=== PATIENT | male | born 1970 | race Caucasian/White ===

== ENCOUNTER 2019-06-04 02:07 | Emergency (ER) | payer OTHER, SELFPAY ==
[2019-06-04 02:08] VITALS: BP 132/88; PULSE 66; RESP 15; TEMP 36.7; O2SAT 97; BMI 23.2
--- NOTE | 2019-06-04 02:40 | ED.DCSUM_ITS ---
- ER Visit Summary Date of Service: 06/04/19 Chief Complaint: Back and leg pain History of Present Illness: The patient is a [address] Chávez. He reports approximate month ago playing basketball he injured his SI joint. States that he has been stretching, but the pain is worsened over the past 5 days. States that over the past 6 hours pain is been excruciating. Is a sharp, stabbing pain is 10 on 10 in severity. Is worsened by movement or walking. Is relieved by remaining still and ibuprofen. States it radiates down the back of his right leg to the level of his calf. He denies any numbness or weakness. No problems with his bowels or his bladder. No groin numbness. Patient denies any red flags. His review of systems is negative. Physical Examination: Vitals: Stable. Afebrile. General: A&O x 3. NAD. Cardiovascular exam: Regular rate and rhythm, no murmur, rub or gallop. Respiratory exam: Clear to auscultation bilaterally. No wheezes or stridor. Abdominal exam: Soft, nontender, nondistended, normal bowel sounds. No peritoneal signs. Back: Diffuse moderate tenderness to palpation over the lumbar spine and the paraspinous musculature in the lumbar region. No point tenderness. Negative straight leg bilaterally. 5/5 DF, PF, EHL bilaterally. Normal sensation to light touch throughout. Extremity: No clubbing, cyanosis, or edema. Emergency Department Course and Treatment: Patient was treated with morphine, Toradol, and Valium. He is resting more comfortably. Treatment Plan: Patient was instructed on symptomatic care. He will be discharged with naproxen, Percocet, and Valium. Instructed to follow-up with Dr. Chávez in 1 week if not improving. Return to the emergency department for any worsening symptoms. Disposition: To home in improved and stable condition. Impression: 1. Acute sciatica on right. This note was generated with [employer] dictation software. It may contain incorrect words, spelling, and punctuation that were not noted in review of the chart prior to signing ED Disposition - Plan for ED Patient: Instructions: Understanding Sciatica Prescriptions: Naproxen [Naprosyn] 500 mg PO BID #14 tablet Oxycodone HCl/Acetaminophen [Percocet 5/325] 1 tablet PO Q6H PRN PRN 3 Days #12 tablet PRN Reason: Pain Diazepam [Valium] 5 mg PO Q8 PRN #20 tablet PRN Reason: Muscle Spasm Referrals: Shakeel Olson MD [Primary Care Provider] - 1 Week if not improving
[2019-06-04] MEDS: Ketorolac 60 MG/2 ML Vial IM (02:48)
[2019-06-04] MEDS: morphine 8 MG/ML Syringe IM (02:49)
[2019-06-04] MEDS: diazePAM 5 MG Tablet PO (02:49)
[2019-06-04 03:20] VITALS: BP 128/60; PULSE 64; RESP 18; O2SAT 98
== END 2019-06-04 03:20 | disposition home or self-care (01) ==
LOC: ED 02:55
PROVIDERS: Emergency Provider Emergency Medicine; PCP Family Medicine
DX: M54.41 Lumbago with sciatica, right side (principal)
CPT/HCPCS: 96372; 99283

== ENCOUNTER 2019-06-05 10:04 | Emergency (ER) | payer OTHER, SELFPAY ==
[2019-06-04 02:08] VITALS: BMI 23.2
[2019-06-05 10:05] VITALS: BP 101/71; PULSE 75; RESP 18; TEMP 36.7; O2SAT 98; BMI 23.3
--- NOTE | 2019-06-05 10:29 | ED.DCSUM_ITS ---
History of Present Illness Chief Complaint: Back Informant: Patient Onset: Days Current Severity: Moderate Maximum Severity: Severe Narrative: Patient presents from PCP office secondary to back pain. He has had problems with his SI joint over the last month or so. Last Tuesday he states he was trying to help a friend push something out of the mud and felt something pull in his right lower back. He developed worse sciatica symptoms on . He states his been crawling around his house. He was seen in the ER early yesterday morning and diagnosed with sciatica. He was given Naprosyn, Percocet, and Valium. Patient states he had noted very minimal improvement in his symptoms. He was seen by his PCP this morning who gave him a steroid shot. Patient states on the way to the ER he started to notice some improvement in his symptoms. He has not had problems with bowel or bladder control. He is concerned about developing constipation from the pain medication. - Past Medical History (1) Sciatica Status: Acute Past Medical History - Allergies and Home Meds Allergies/Adverse Reactions: Allergies No Known Allergies Allergy (Verified 06/05/19 10:04) Primary Care Physician: Shakeel Olson MD [Primary Care Provider] - Prior records reviewed: Yes Lives: Spouse/ Significant Other Smoking Status: Never smoker Review of Systems General: Denies: Chills, Fever Eyes: Denies: Visual changes - bilaterally ENT: Denies: Bilateral ear pain Cardiovascular: Denies: Chest pain, Palpitations Respiratory: Denies: Dyspnea, Cough Gastrointestinal: Denies: Abdominal pain, Nausea, Vomiting, Diarrhea Musculoskeletal: Reports: Back pain, Extremity Pain Skin: Denies: Rash Neurological: Denies: Headache, Parasthesia Hematologic: Denies: Easy bruising Allergy: Denies: Uticaria Physical Exam Vital Signs/Narrative: Vital Signs Temp Pulse Resp BP Pulse Ox 06/05/19 10:05 98.1 F 75 18 101/71 98 Inital Vital Signs reviewed: Yes General: Well nourished, Well developed Head: Normocephalic ENT: Moist mucous membranes Neck: Supple Cardiovascular: Regular rate, Regular rhythm Respiratory: No distress, CTA bilaterally Abdomen: Soft, Nontender Back: - - No midline tenderness. Minimal tenderness over the right SI joint. Skin: Normal color Neurological: Alert, Oriented x3, - - Patient lying prone on the bed. Strong distal pulses noted. Good range of motion of both extremities. Psychological: Normal affect Diagnostic/Tx/Re-eval - Medical Decision Making Patient was given 1 mg of IM Dilaudid on arrival. On repeat evaluation patient has been able to ambulate to the restroom. We were able to get him rolled onto his back and sitting upright in the bed. He states his PCP had mentioned potentially switching to a different anti-inflammatory. I touched base with Dr. Olson. He said his plan was to give the patient 40 mg of prednisone for the next 5 days as well as starting him on gabapentin 300 mg 3 times daily. I will write him these prescriptions as well as stool softeners. He will follow-up with Dr Olson in the office. ED Disposition - Plan for ED Patient: Disposition: Home or Assisted Living Diagnosis: Sciatica Instructions: ED LUMBAR RADICULOPATHY Prescriptions: Docusate Sodium [Colace] 100 mg PO DAILY #20 cap Transmission Status: Pending to [facility] Prednisone [Deltasone] 40 mg PO DAILY #10 tab Transmission Status: Pending to [facility] Gabapentin [Neurontin] 300 mg PO TIDCM #60 cap Transmission Status: Pending to [facility] Referrals: Shakeel Olson MD [Primary Care Provider] - 1 Week
[2019-06-05] MEDS: HYDROmorphone 1 MG/ML Syringe IM (10:36)
== END 2019-06-05 12:45 | disposition home or self-care (01) ==
PROVIDERS: Emergency Provider Emergency Medicine; PCP Family Medicine
DX: M54.41 Lumbago with sciatica, right side (principal)
CPT/HCPCS: 96372; 99282

== ENCOUNTER → 2019-06-08 08:52 | Outpatient (CLI) | payer OTHER, SELFPAY ==
[2019-06-05 10:05] VITALS: BMI 23.3
--- NOTE | 2019-06-08 09:02 | RAD_ITS ---
STUDY: X-RAY - LUMBAR SPINE REASON FOR EXAM: Male, 48 years old. Lumbago with sciatica -- numbness in toes, right side TECHNIQUE: 5 view(s) of the lumbar spine were obtained including oblique views. COMPARISON: None FINDINGS: Normal lumbar lordosis. There is no substantial scoliosis. There is a normal alignment of the vertebrae. There is endplate spondylosis of the L2-L3 and L3-L4 levels. Normal disc space heights. The soft tissue structures are unremarkable. RAD/L/S Spine Min 4 Views IMPRESSION: Degenerative changes of the spine, as detailed above. Electronically Signed: Alejandro Saenz, at 9:47 EDT , Service support ,
== END ==
PROVIDERS: PCP Family Medicine; Referring Provider Family Medicine; Visit Provider Family Medicine
DX: M54.40 Lumbago with sciatica, unspecified side (principal)
CPT/HCPCS: 72110

== ENCOUNTER 2020-01-26 08:44 | Observation (INO) | payer OTHER, SELFPAY ==
[2020-01-26 08:45] VITALS: BP 127/103; PULSE 101; RESP 19; TEMP 36.6; O2SAT 99; BMI 22.7
--- NOTE | 2020-01-26 08:50 | ED.RN ---
pt states that i am moist down there, and i can smell it. pt had a recent vasectomy.
--- NOTE | 2020-01-26 09:05 | ED.VISSUMM ---
- ER Visit Summary Date of Service: 01/26/20 Chief Complaint: Scrotal abscess History of Present Illness: The patient is a 49 M who presents with a scrotal abscess. Signed up to see the patient however prior to evaluating the patient, I was called to another room to see an unresponsive patient. When I came out of the patient's room, Dr. Cool was here to see the patient. He stated he will just see the patient primarily as a private patient. Patient was not seen or evaluated by myself. Physical Examination: [] Test Results: [] Emergency Department Course and Treatment: Treatment Plan: [] Disposition: Impression: [] This note was generated with [employer] dictation software. It may contain incorrect words, spelling, and punctuation that were not noted in review of the chart prior to signing ED Disposition - Plan for ED Patient: Disposition: Acute Care Hospital [facility] Referrals: Shakeel Olson MD [Primary Care Provider] -
--- NOTE | 2020-01-26 09:18 | PCM.HP.BLA ---
History and Physical Date of Admission: 01/26/20 49-year-old male who underwent a vasectomy in the office about 10 days ago was did initially really well and then he came back to the office few days later with some mild swelling we put him on antibiotics anti-inflammatories the swelling continued and then call me today says the swelling is even worse now he is seeing some pus coming from the incision site so came to the emergency room and did an incision and drainage of the vasectomy sites in both the left and right side he had pus and had developed a small abscess on both the left and right side. On examination the scrotum is swollen very tender the right side is much more swollen made an incision and drainage of the right side drained out issa pus sent out the pus for culture and packed it with Nu Gauze on the left side made a small incision packed with Nu Gauze. 49-year-old male who unfortunately developed a scrotal abscess after vasectomy he will be admitted for IV antibiotics and the nurses could do dressing changes.
[2020-01-26] MEDS: Lidocaine 1% (20 ml mdv) 20 ML Vial 5 ML INFILT (09:22)
[2020-01-26 10:51] VITALS: BMI 22.2
[2020-01-26 10:52] VITALS: BP 114/73; PULSE 60; RESP 18; TEMP 36.8; O2SAT 100
[2020-01-26] MEDS: oxyCODONE 5 MG Tablet 10 MG PO ×3 (12:05→20:09)
[2020-01-26] MEDS: Ceftriaxone 1 GM/50 ML BAG IV ×2 (12:07→22:38)
[2020-01-26 14:50] VITALS: BP 108/66; PULSE 63; RESP 18; TEMP 36.7; O2SAT 100
[2020-01-26] MEDS: Naproxen 500 MG Tablet PO (18:36)
[2020-01-26 20:03] VITALS: BP 106/55; PULSE 65; RESP 18; TEMP 36.8; O2SAT 98
[2020-01-27] MEDS: oxyCODONE 5 MG Tablet 10 MG PO ×5 (00:14→16:51)
[2020-01-27 02:10] VITALS: BP 99/64; PULSE 58; RESP 18; TEMP 36.6; O2SAT 99
[2020-01-27] MEDS: Acetaminophen 325 MG Tablet 650 MG PO (02:15)
[2020-01-27 08:15] VITALS: BP 105/77; PULSE 64; RESP 16; TEMP 36.6; O2SAT 100
[2020-01-27] MEDS: Naproxen 500 MG Tablet PO ×2 (08:51→16:53)
[2020-01-27] MEDS: Ceftriaxone 1 GM/50 ML BAG IV ×2 (08:53→22:13)
--- NOTE | 2020-01-27 09:38 | PN_ITS ---
Subjective: Dressing change today for scrotal abscess bilaterally - Physical Exam Vitals/I&O's: Vital Signs Temp Pulse Resp BP Pulse Ox 97.8 F 64 16 105/77 100 01/27/20 08:15 01/27/20 08:15 01/27/20 08:15 01/27/20 08:15 01/27/20 08:15 Oxygen Delivery Method Room Air Weight: 68.266 kg Body Mass Index (BMI) 22.2 Intake and Output for Last 24 Hours 01/25/20 01/26/20 01/27/20 23:59 23:59 23:59 Intake Total 1640 / 1640 617.5 / 617.5 Balance 1640 / 1640 617.5 / 617.5 General: Alert, Oriented x3, Cooperative HEENT: Atraumatic, PERRLA, EOMI, Normocephalic Neck: Supple, No JVD, Negative Carotid Bruits Lungs: Clear to auscultation, Normal air movement Cardiovascular: Regular rate, No murmurs Abdomen: Bowel Sounds Present, Soft, Non Tender Extremities: No edema, Capillary Refill Less than 3 Seconds Skin: No rashes, No breakdown Musculoskeletal: No Tenderness to Palpation of Joints or Extremities Neurological: Cranial nerves II-XII grossly intact Psych/Mental Status: Normal Affect, Appropriate Current Medications Acetaminophen (Acetaminophen 325 Mg Tablet) 650 mg PO Q6H PRN PRN PRN Reason: Pain Score 1-10/Temp > 100.7 F Last Admin: 01/27/20 02:15 Dose: 650 mg Documented by: Ceftriaxone Sodium (Rocephin) 1 gm in 50 mls @ 100 mls/hr IV Q12 [facility] Last Admin: 01/27/20 08:53 Dose: 100 mls/hr Documented by: Sodium Chloride () 250 mls @ 15 mls/hr IV .[id number] PRN PRN Reason: Saline Flush Last Infusion: 01/27/20 08:54 Dose: 0 mls/hr Documented by: Sodium Chloride () 250 mls @ 15 mls/hr IV .[id number] PRN PRN Reason: Additional IVPB Infusion Naproxen (Naproxen 500 Mg Tablet) 500 mg PO BIDCM [facility] Last Admin: 01/27/20 08:51 Dose: 500 mg Documented by: Oxycodone HCl (Oxycodone 5 Mg Tablet) 10 mg PO Q4H PRN PRN PRN Reason: Pain Score 4-10 Last Admin: 01/27/20 08:49 Dose: 5 mg Documented by: Sodium Chloride (0.9% Saline Lock 10 Ml Syringe) 10 - 40 ml IV UD PRN PRN Reason: SALINE FLUSH Medical Necessity - Tobacco Use Smoking Status: Never smoker Assessment/Plan All Active Problems Sciatica (Acute) Still some mild drainage on the left side with some purulent material right side look looking better nurses will do dressing change tonight other dressing change tomorrow morning plan to discharge him home tomorrow with antibiotics await cultures.
[2020-01-27 16:48] VITALS: BP 108/67; PULSE 67; RESP 16; TEMP 36.7; O2SAT 99
[2020-01-27 20:21] VITALS: BP 112/58; PULSE 56; RESP 16; TEMP 36.8; O2SAT 96
[2020-01-27] MEDS: Morphine 2 MG/ML Syringe IV (21:10)
[2020-01-27] MEDS: 0.9% Saline Lock 10 ML Syringe IV (21:13)
[2020-01-28 02:37] VITALS: BP 101/63; PULSE 59; RESP 16; TEMP 36.6; O2SAT 98
[2020-01-28] MEDS: oxyCODONE 5 MG Tablet 10 MG PO (05:49)
--- NOTE | 2020-01-28 07:37 | DCINST_ITS ---
Discharge Diet: No Restrictions, Light diet - advance as tolerated Call your doctor if your incision/area has: Sudden Increased Bleeding Call your doctor if you observe: Fever of 101 or Higher Allergies/Adverse Reactions: Allergies No Known Allergies Allergy (Verified 01/26/20 10:53) Medications to take at Discharge Diazepam [Valium] 5 mg PO Q8 PRN #20 tab 06/04/19 Naproxen [Naprosyn] 500 mg PO BID #14 tab 06/04/19 Docusate Sodium [Colace] 100 mg PO DAILY #20 cap 06/05/19 Gabapentin [Neurontin] 300 mg PO TIDCM #60 cap 06/05/19 Prednisone [Deltasone] 40 mg PO DAILY #10 tab 06/05/19 Smz/Tmp Ds [Bactrim Ds] 1 tab PO BID 01/26/20 Primary Care Physician: Shakeel Olson MD [Primary Care Provider] - Test Results: Test results from this visit will be discussed in further detail at your follow- up appointment, if applicable. Please Follow Up With: Jj Cool MD When: come to office tomorrow for dressing change
--- NOTE | 2020-01-28 07:39 | PCM.DC.SUM ---
Discharge Date and Diagnosis Date of Admission: 01/26/20 Date of Discharge: 01/28/20 Hospital Course and Treatment Summary of Care Provided: The patient is a 49 year old male admitted to the hospital with scrotal abscess. Underwent incision and drainage of abscess IV antibiotics stabilized and discharged home today. - Physical Exam Vitals/I&O's: Vital Signs Temp Pulse Resp BP Pulse Ox 98 F 59 L 16 101/63 98 01/28/20 02:37 01/28/20 02:37 01/28/20 02:37 01/28/20 02:37 01/28/20 02:37 Oxygen Delivery Method Room Air Weight: 68.266 kg Body Mass Index (BMI) 22.2 Intake and Output for Last 24 Hours 01/26/20 01/27/20 01/28/20 23:59 23:59 23:59 Intake Total 1640 / 1640 2194.0 / 2594.0 706 / 706 Balance 1640 / 1640 2194.0 / 2594.0 706 / 706 General: Alert, Oriented x3, Cooperative HEENT: Atraumatic, PERRLA, EOMI, Normocephalic Neck: Supple, No JVD, Negative Carotid Bruits Lungs: Clear to auscultation, Normal air movement Cardiovascular: Regular rate, No murmurs Abdomen: Bowel Sounds Present, Soft, Non Tender Extremities: No edema, Capillary Refill Less than 3 Seconds Skin: No rashes, No breakdown Musculoskeletal: No Tenderness to Palpation of Joints or Extremities Neurological: Cranial nerves II-XII grossly intact Psych/Mental Status: Normal Affect, Appropriate Current Medications Acetaminophen (Acetaminophen 325 Mg Tablet) 650 mg PO Q6H PRN PRN PRN Reason: Pain Score 1-10/Temp > 100.7 F Last Admin: 01/27/20 02:15 Dose: 650 mg Documented by: Ceftriaxone Sodium (Rocephin) 1 gm in 50 mls @ 100 mls/hr IV Q12 [facility] Last Infusion: 01/27/20 22:50 Dose: Infused Documented by: Sodium Chloride () 250 mls @ 15 mls/hr IV .[id number] PRN PRN Reason: Saline Flush Last Infusion: 01/28/20 02:00 Dose: Infused Documented by: Sodium Chloride () 250 mls @ 15 mls/hr IV .[id number] PRN PRN Reason: Additional IVPB Infusion Naproxen (Naproxen 500 Mg Tablet) 500 mg PO BIDCM [facility] Last Admin: 01/27/20 16:53 Dose: 500 mg Documented by: Oxycodone HCl (Oxycodone 5 Mg Tablet) 10 mg PO Q4H PRN PRN PRN Reason: Pain Score 4-10 Last Admin: 01/28/20 05:49 Dose: 5 mg Documented by: Sodium Chloride (0.9% Saline Lock 10 Ml Syringe) 10 - 40 ml IV UD PRN PRN Reason: SALINE FLUSH Last Admin: 01/27/20 21:13 Dose: 10 ml Documented by: Discharge Diet: No Restrictions, Light diet - advance as tolerated Call your doctor if your incision/area has: Sudden Increased Bleeding Call your doctor if you observe: Fever of 101 or Higher Home Medications: Medications to take at Discharge Naproxen [Naprosyn] 500 mg PO BID #14 tab 06/04/19 Prednisone [Deltasone] 40 mg PO DAILY #10 tab 06/05/19 Smz/Tmp Ds [Bactrim Ds] 1 tab PO BID 01/26/20 Primary Care Physician: Shakeel Olson MD [Primary Care Provider] - Please Follow Up With: Jj Cool MD When: come to office tomorrow for dressing change Medical Necessity - Tobacco Use Smoking Status: Never smoker Meaningful Use Info Meaningful Use Diagnoses (Choose all that apply): None applicable
[2020-01-28] MEDS: Naproxen 500 MG Tablet PO (08:08)
[2020-01-28 09:15] VITALS: BP 117/63; PULSE 64; RESP 16; TEMP 36.4; O2SAT 98
[2020-01-28] MEDS: 0.9% Saline Lock 10 ML Syringe IV (09:15)
[2020-01-28] MEDS: Ceftriaxone 1 GM/50 ML BAG IV (09:15)
== END 2020-01-28 10:24 | disposition home or self-care (01) ==
LOC: ED 09:41 → MS3 10:48
PROVIDERS: Admitting Provider Urology; Emergency Provider Urology; PCP Family Medicine; Visit Provider Urology
DX: N49.2 Inflammatory disorders of scrotum (principal); Z79.1 Long term (current) use of non-steroidal anti-inflammatories (NSAID)
CPT/HCPCS: 96365; 96366; 96375; 99218; 99281; J7050; A4216; G0378

== ENCOUNTER 2020-12-26 21:01 | Emergency (ER) | payer OTHER, SELFPAY ==
[2020-12-26 21:02] VITALS: BP 120/73; PULSE 89; RESP 16; TEMP 36.7; O2SAT 96; BMI 22.7
--- NOTE | 2020-12-26 21:19 | RAD_ITS ---
STUDY: X-RAY - RIGHT ELBOW REASON FOR EXAM: Male, 50 years old. Other, pt has an infected elbow that is getting worse been getting treated for the same at drs office TECHNIQUE: 2 view(s) of the elbow. COMPARISON: None. FINDINGS: Normal visualized humerus, radius and ulna. Small displaced enthesophyte of the olecranon process is noted. Mild posterior soft tissue swelling is present. No demonstrated cortical erosion. No fracture is seen. Normal radiocapitellar and ulnotrochlear articulations. RAD/Elbow 2 Views IMPRESSION: 1. Mild posterior soft tissue swelling Electronically Signed: Ty Suárez MD at 22:13 EDT , Service support ,
--- NOTE | 2020-12-26 21:24 | EX.ED.DYSGE1 ---
HPI History of Present Illness Chief Complaint: Wound Informant: patient Narrative Narrative: Presents here for wound check right elbow that is worsening throughout the day. [id number]. Working yesterday with scrubbing of the right hand, denied leaning on his INR any injuries. States today there is slight swelling saw PCP office, reported concerns of a small abrasion of the elbow causing infection. He was started on Keflex and Bactrim. He is taking 1 dose of each. He states was told if symptoms worsen to go the ED. Since then the redness swelling has increased in the elbow. He states he feels warm. He is not a diabetic. No allergies. He feels discomfort when he over flex the elbow due to the swelling. Prior similar symptoms: No PFSH PFSH Home Medications amoxicillin-pot clavulanate [Augmentin] 1 tab PO BID #20 tab 12/26/20 [Rx Last Taken Unknown] doxycycline monohydrate 100 mg PO BID #20 cap 12/26/20 [Rx Last Taken Unknown] Allergy/AdvReac Type Severity Reaction Status Date / Time No Known Allergies Allergy Verified 12/26/20 21:04 Surgical History H/O vasectomy Social History Smoking Status: Never smoker ROS ROS ED Constitutional Constitutional ED: Denies chills, fever(s) or sweats Eyes Eyes: Denies change in vision ENT ENT ED: Denies dysphagia or sore throat Cardiovascular Cardiovascular: Denies chest pain, leg edema, palpitations or racing heartbeat Respiratory/Chest Respiratory/Chest: Denies cough, dyspnea or dyspnea on exertion Gastrointestinal Gastrointestinal: Denies abdominal pain, diarrhea, nausea or vomiting Genitourinary Genitourinary ED: Denies dysuria, hematuria or urinary frequency Musculoskeletal Musculoskeletal: Denies back pain, extremity pain or neck pain Integumentary Reports rash and other Details: Swelling right elbow with erythema. ; Denies wounds Neurologic Neurologic: Denies headache(s), paresthesias or weakness EXAM Physical Exam Const Vital Signs: 12/26/20 21:02 Temperature 98.1 F Temperature Source Temporal Pulse Rate 89 Respiratory Rate 16 Blood Pressure 120/73 Blood Pressure Mean 88 Pulse Ox 96 Oxygen Delivery Method Room Air Positive well nourished and well developed General Appearance ED: well developed and NAD HEENT Reports moist mucous membranes normocephalic and atraumatic Eyes PERRL, EOMs intact bilaterally and conjunctivae normal General Eye ED: Yes normal appearance of both eyes Neck no lymphadenopathy and supple General: Negative for tenderness Chest Wall Chest: Negative for tenderness Resp normal respiratory effort and normal air movement Effort and Inspection: symmetric chest movement; Negative for respiratory distress Cardio regular rate, regular rhythm and no murmurs Peripheral Pulses: pulses 2+ throughout GI normal to inspection, nondistended, normoactive bowel sounds and non-tender Palpation: Negative for guarding or rebound tenderness present Back/Spine no CVA tenderness and no thoracic nor lumbar tenderness Extremity Extremity Narrative: Full range of motion the elbow without tenderness. See below for skin exam. Neuro oriented x3 and no sensory deficits noted Sensorium / Orientation: awake and alert Skin Skin Narrative: Right upper extremity: Swelling at the elbow, small abrasion at the olecranon with no drainage. There was streaking medial aspect of the humerus towards the axilla. There is no axillary lymphadenopathy. MDM MDM MDM Narrative Medical decision making narrative: Your edema outlined. X-ray no soft tissue swelling. Range of motion without pain, low suspicion for septic joint. Labs are obtained is given Unasyn for coverage. White count 11.7 creatinine 1.44. ESR 14. CRP 54. Give additional fluids for renal insufficiency. There is no old labs for comparison. He has not been told of any kidney issues. After antibiotics are evaluated there is no progression. With component of bursitis with worsening cellulitis discussed will change antibiotics to Augmentin. Doxycycline secondary to his renal insufficiency. He will hold both the Keflex and Bactrim. Strict return precautions. Otherwise follow-up with his PCP reevaluation and repeat blood test. All questions were answered. Lab Data Attestation: I reviewed the patient's lab results. Labs: Laboratory Results - last 24 hr 12/26/20 12/26/20 21:35 21:35 WBC 11.7 H RBC 4.29 L Hgb 13.2 Hct 39.7 L MCV 92.5 MCH 30.8 MCHC 33.2 RDW Std Deviation 43.5 RDW Coeff of Sunny 12.8 Plt Count 168 MPV 9.7 Immature Gran % (Auto) 0.300 Neut % (Auto) 86.8 H Lymph % (Auto) 4.1 L [place] % (Auto) 8.2 Eos % (Auto) 0.2 Baso % (Auto) 0.4 Absolute Neuts (auto) 10.2 H Absolute Lymphs (auto) 0.48 L Nucleated RBC % 0 Differential Comment SEE COMMENT Platelet Estimate ADEQUATE RBC Morphology N CHROM Anisocytosis RARE Macrocytosis RARE ESR 14 Sodium 136 Potassium 4.0 Chloride 101 Carbon Dioxide 29.0 Anion Gap 6 BUN 21 H Creatinine 1.44 H Estim Creat Clear Calc 59.21 Est GFR (MDRD) Af Amer 66 Est GFR (MDRD) Non-Af 55 L BUN/Creatinine Ratio 14.6 Glucose 107 H Calcium 8.7 C-React Prot Ext Range 54.60 H Radiography Chest X-Ray - ED: Read by ED Physician and Read by Radiologist Diagnostic Testing: Clinical Impression(s) from Imaging Studies Elbow X-Ray 12/26/20 21:19 IMPRESSION: 1. Mild posterior soft tissue swelling Electronically Signed: Ty Suárez MD at 22:13 EDT , Service support , Discharge Plan Triage Chief Complaint: Wound ED Provider: Charlie Arce Dx/Rx/DC Orders Clinical Impression: Cellulitis of right elbow, Bursitis of right elbow, Acute renal insufficiency Instructions: ED Bursitis, ED Cellulitis Prescriptions: New doxycycline monohydrate 100 MG capsule 100 mg PO BID Qty: 20 RF: 0 amoxicillin-pot clavulanate [Augmentin] 875-125 mg tablet 1 tab PO BID Qty: 20 RF: 0 Discontinued sulfamethoxazole-trimethoprim 800-160 mg tablet 2 tab PO BID RF: 0 cephalexin 500 mg capsule 500 mg PO TID RF: 0 Primary Care Provider: hSakeel Olson Referrals: Shakeel Olson MD [Primary Care Provider] - 3-5 Days Activity Restrictions/Additional Instructions: Creatinine 1.44 today. No old for comparison. Continue oral fluids at home. Recheck labs by your doctor. Avoid anti-inflammatory medicines. May use Tylenol. Stop both the Keflex and Bactrim. Take new prescriptions as prescribed. Disposition Disposition: Home, Self Care Discharge Date/Time: 12/26/20 23:33
[2020-12-26 21:55] LABS: Absolute Lymphocyte Count 0.48 X10^3/uL (0.83-4.51); Absolute Neutrophil Count 10.2 X10^3/uL (2.0-7.7); Basophil# 0.05 X10^3/uL; Basophil% 0.4 % (0-1); Eosinophil# 0.02 X10^3/uL; Eosinophils% 0.2 % (0-5); Hematocrit 39.7 % (40-54); Hemoglobin 13.2 g/dL (13.0-16.5); Lymphocyte # 0.48 X10^3/ul (0.83-4.51); Lymphocyte % 4.1 % (19-41); Mean Corp Hgb Conc 33.2 g/dL (32-36); Mean Corpuscular Hgb 30.8 pg (27.0-32.0); Mean Corpuscular Volume 92.5 fL (80-94); Mean Platelet Vol. 9.7 fl (6.2-12.0); Monocyte# 0.96 X10^3/uL; Monocyte% 8.2 % (0-10); NRBC Flagged by Analyzer 0 % (0-5); Neutrophil # 10.15 X10^3/uL (2.7-7.7); Neutrophil % 86.8 % (47-70); POSITIVE DIFFERENTIAL YES; Platelet Count 168 K/mm3 (150-450); RBC Distribution Width CV 12.8 % (11.6-14.6); RBC Distribution Width SD 43.5 fl (35.1-43.9); Red Blood Count 4.29 M/mm3 (4.6-6.2); White Blood Count 11.7 K/mm3 (4.4-11.0)
[2020-12-26 22:00] LABS: Differential Indicated SCAN CRITERIA MET
[2020-12-26 22:02] LABS: Anion Gap 6 (5-15); BUN 21 mg/dL (7-18); BUN/Creat Ratio 14.6 RATIO (10-20); Calcium,Total 8.7 mg/dL (8.5-10.1); Chloride 101 mmol/L (98-107); Creatinine, Serum 1.44 mg/dL (0.70-1.30); EST Glomerular Filtration Rate 55 mL/min (>60); Est Glom Filt Rate - Afr Amer 66 mL/min (>60); Estimated Creatinine Clearance 59.21 ml/min; Glucose 107 mg/dL (74-106); Sodium Level 136 mmol/L (136-145)
[2020-12-26 22:03] LABS: Erythrocyte Sedimentation Rate 14 mm/hr (0-20)
[2020-12-26 22:18] LABS: Anisocytosis RARE; Macrocytosis RARE; Platelet Estimate ADEQUATE (ADEQ); Red Cell Morphology N CHROM NORMAL (NORM C&C)
[2020-12-26] MEDS: 0.9% Normal Saline 1,000 ML 999 ML IV (22:28)
[2020-12-26] MEDS: Acetaminophen 500 MG Tablet 1000 MG PO (23:03)
== END 2020-12-26 23:33 | disposition home or self-care (01) ==
PROVIDERS: Emergency Provider Emergency Medicine; PCP Family Medicine
DX: L03.113 Cellulitis of right upper limb (principal); M70.31 Other bursitis of elbow, right elbow; Y93.9 Activity, unspecified; N28.9 Disorder of kidney and ureter, unspecified; S50.311A Abrasion of right elbow, initial encounter; X58.XXXA Exposure to other specified factors, initial encounter; Y92.9 Unspecified place or not applicable
CPT/HCPCS: 73070; 80048; 85025; 85652; 86140; 87040; 96365; 99284; J7030; J7040; A4216; J0295

== ENCOUNTER 2023-06-11 18:23 | Emergency (ER) | payer OTHER, SELFPAY ==
[2023-06-11 18:23] VITALS: BP 159/83; PULSE 70; RESP 16; TEMP 36.4; O2SAT 100
[2023-06-11 18:24] VITALS: BP 159/83; PULSE 70; RESP 16; TEMP 36.4; O2SAT 100; BMI 22.8
--- NOTE | 2023-06-11 18:37 | EX.ED.DYSGE1 ---
HPI <KEEGAN Murphy - Last Filed: 06/11/23 19:47> History of Present Illness Chief Complaint: Lower Extremity Injury Narrative Narrative: Patient states he was tearing down an old barn when a board with a nail fell down and went into his right lower quadriceps and then rebounded out on its own. He states it went deep and felt like it hit the bone. This happened around 10 AM. He went to [facility] and got his tetanus shot updated. He has has increasing pain and swelling in the area and called his primary care doctor who recommended he come to the ED. Patient is able to ambulate. PFSH <KEEGAN Murphy - Last Filed: 06/11/23 19:47> [facility] Home Medications cephalexin 500 mg capsule 500 mg PO Q12 #14 CAPSULES 06/11/23 [Rx Last Taken Unknown] Allergy/AdvReac Type Severity Reaction Status Date / Time No Known Allergies Allergy Verified 06/11/23 18:26 Surgical History H/O vasectomy Social History Smoking Status: Never smoker ROS <KEEGAN Murphy - Last Filed: 06/11/23 19:47> ROS ED ROS Narrative Neuro: Negative for motor/sensory dysfunction. Skin: Positive for wound. Musc: Positive for right thigh pain, trauma. EXAM <KEEGAN Murphy - Last Filed: 06/11/23 19:47> Physical Exam Narrative Exam Narrative: CONST: Patient sitting in no acute distress. EYES: Normal inspection. EXTREMITIES: Puncture wound on the right lower mid quadriceps with mild soft tissue swelling and tenderness, no tenderness of the knee joint. Full range of motion hip knee and ankle, 5/5 strength, normal sensation, 2+ DP pulse. NEURO: Alert and answering questions appropriately. PSYCH: Normal affect. Const Vital Signs: 06/11/23 18:23 06/11/23 18:24 06/11/23 19:43 Temperature 97.5 F L 97.5 F L 98.7 F Temperature Source Temporal Temporal Pulse Rate 70 70 71 Respiratory Rate 16 16 16 Blood Pressure 159/83 H 159/83 H 125/88 H Blood Pressure Mean 108 108 100 Pulse Ox 100 100 98 Oxygen Delivery Method Room Air Room Air <Dr. Renaldo Calvo DO - Last Filed: 06/11/23 20:01> Physical Exam Const Vital Signs: 06/11/23 18:23 06/11/23 18:24 06/11/23 19:43 Temperature 97.5 F L 97.5 F L 98.7 F Temperature Source Temporal Temporal Pulse Rate 70 70 71 Respiratory Rate 16 16 16 Blood Pressure 159/83 H 159/83 H 125/88 H Blood Pressure Mean 108 108 100 Pulse Ox 100 100 98 Oxygen Delivery Method Room Air Room Air [facility] <KEEGAN Murphy - Last Filed: 06/11/23 19:47> [facility] Narrative Medical decision making narrative: Patient has a puncture wound on his right thigh from a wooden board that had a nail protruding. There is very minimal soft tissue swelling. Extremities neurovascular intact. No joint involvement. X-ray shows no acute findings. Patient's tetanus was updated earlier this morning at the pharmacy. I prescribed Keflex and discussed return precautions. He was discharged in stable condition Radiography Diagnostic Testing: Clinical Impression(s) from Imaging Studies Femur X-Ray 06/11/23 18:40 IMPRESSION: Normal x-ray examination of the femur. Electronically Signed: Laith Rendon MD at 19:18 EDT , ED attending interpretation of right femur shows no fracture or foreign body <Dr. Renaldo Calvo DO - Last Filed: 06/11/23 20:01> [facility] Narrative Medical decision making narrative: Patient has a puncture wound on his right thigh from a wooden board that had a nail protruding. There is very minimal soft tissue swelling. Extremities neurovascular intact. No joint involvement. X-ray shows no acute findings. Patient's tetanus was updated earlier this morning at the pharmacy. I prescribed Keflex and discussed return precautions. He was discharged in stable condition I have personally performed a face to face assessment of the patient and have reviewed the BUTCH Note. I performed a substantive portion of the visit including all aspects of the following. My bowers findings include: History is 52-year-old male with hit in the anterior right lower thigh near the quadriceps tendon earlier today by piece of wood from the dust that he was dismantling. The wood had a finishing nail sticking out of it that pierced the skin. He notes swelling and soreness. Patient got a tetanus update earlier today following the accident. Exam is there is a puncture wound without drainage erythema or increased warmth just above the knee joint in the area of the quadriceps tendon. Extensor mechanism is intact. Neurovascular intact. No obvious signs of secondary infection. Minimal swelling compared to the left. Neurovascular intact distal. Knee joint otherwise appears normal. Medical Decison Making my independent interpretation of the plain films is no obvious foreign body. No soft tissue gas. Patient will be prescribed Keflex. Local wound care. He notes concern for tendon puncture and development of infection. Return if worsening or concerns Radiography Diagnostic Testing: Clinical Impression(s) from Imaging Studies Femur X-Ray 06/11/23 18:40 IMPRESSION: Normal x-ray examination of the femur. Electronically Signed: Laith Rendon MD at 19:18 EDT Reading Location ID and State: [address] [place] [address] Tel , Service support , Discharge Plan Triage Chief Complaint: Lower Extremity Injury ED Midlevel Provider: Citlaly Ibarra ED Provider: Renaldo Calvo Dx/Rx/DC Orders Clinical Impression: Puncture wound of right thigh Instructions: ED Puncture Wound (General) Prescriptions: New cephalexin 500 mg capsule 500 mg PO Q12 Qty: 14 0RF Primary Care Provider: Jesús Olson Referrals: Jesús Olson MD [Primary Care Provider] - Activity Restrictions/Additional Instructions: Clean once daily with soap and water and use ice and Tylenol Motrin as needed. Please take the antibiotics to prevent infection. If you develop redness, swelling, pus, fever etc. be reevaluated immediately. Disposition Disposition: Home, Self Care Discharge Date/Time: 06/11/23 19:48
--- NOTE | 2023-06-11 18:40 | RAD_ITS ---
STUDY: X-RAY - RIGHT FEMUR REASON FOR STUDY: Male, 52 years old. pain TECHNIQUE: 4 view(s) of the femur. COMPARISON: None. FINDINGS: Normal visualized femur. Normal visualized soft tissue structure. RAD/Femur Min 2 Views IMPRESSION: Normal x-ray examination of the femur. Electronically Signed: Laith Rendon MD at 19:18 EDT ,
[2023-06-11] MEDS: Cephalexin 250 MG Capsule 500 MG PO (19:26)
[2023-06-11 19:43] VITALS: BP 125/88; PULSE 71; RESP 16; TEMP 37.1; O2SAT 98
== END 2023-06-11 19:48 | disposition home or self-care (01) ==
PROVIDERS: Emergency Provider Emergency Medicine; PCP Family Medicine; Visit Provider Emergency Medicine
DX: S71.131A Puncture wound without foreign body, right thigh, initial encounter (principal); W45.0XXA Nail entering through skin, initial encounter; Y93.89 Activity, other specified; Y92.71 Barn as the place of occurrence of the external cause; Z98.52 Vasectomy status
CPT/HCPCS: 73552; 99283